=== PATIENT | female | born 1985 | race Asian ===

== ENCOUNTER 2017-05-01 00:30 | Inpatient (IN) | payer SELFPAY ==
[~2017-05-01] VITALS: Ht 160 cm; Wt 71.7 kg
[2017-05-01] MEDS ORDERED: MISOPROSTOL 25 MCG TAB VG PRN (01:30)
[2017-05-01] MEDS ORDERED: NALBUPHINE HYDROCHLORIDE 10 MG/ML VIAL IVP PRN (01:30)
[2017-05-01] MEDS ORDERED: OXYTOCIN 10 UNITS/ML VIAL IM SCH (01:30)
[2017-05-01] MEDS ORDERED: METHYLERGONOVINE 0.2 MG/ML AMP IM PRN (01:30)
[2017-05-01] MEDS ORDERED: PROMETHAZINE 25 MG/ML VIAL IVP PRN (01:30)
[2017-05-01] MEDS ORDERED: CARBOPROST 250 MCG/ML AMP IM PRN (01:30)
[2017-05-01] MEDS: LACTATED RINGERS 1,000 ML IV SCH ×5 (01:59→19:59)
[2017-05-01 02:17] LABS: BASOPHILS # (AUTO) 0.1 K/uL (0.00-0.22); BASOPHILS % (AUTO) 0.8 % (0.0-2.0); EOSINOPHILS # (AUTO) 0.1 K/uL (0-0.4); EOSINOPHILS % (AUTO) 0.8 % (0.0-4.0); HEMATOCRIT 35.3 % (36-48); HEMOGLOBIN 11.8 g/dL (12.0-16.0); LYMPHOCYTES # (AUTO) 1.3 K/uL (2.5-16.5); LYMPHOCYTES % (AUTO) 12.1 % (20.5-51.1); MEAN CORPUSCULAR HEMOGLOBIN 29 pg (27-31); MEAN CORPUSCULAR HGB CONC 33 g/dL (33-37); MEAN CORPUSCULAR VOLUME 86 fL (80-94); MONOCYTES # (AUTO) 0.7 K/uL (0.8-1.0); NEUTROPHILS # (AUTO) 8.2 K/uL (1.8-7.7); NEUTROPHILS % (AUTO) 79.3 % (42.2-75.2); PLATELET COUNT (AUTO) 131 K/uL (140-450); RED BLOOD CELL COUNT(AUTO) 4.09 MIL/uL (4.20-5.40); RED CELL DISTRIBUTION WIDTH 17.7 % (11.6-13.7); WHITE BLOOD COUNT (AUTO) 10.4 K/uL (4.8-10.8)
[2017-05-01] MEDS ORDERED: MISOPROSTOL 25 MCG TAB ONE ×3 (02:46→14:42)
[2017-05-01 02:56] LABS: ANION GAP 14.6 (8-16); CARBON DIOXIDE 22.8 mmol/L (21-32); CREATININE 0.6 mg/dL (0.6-1.3); POTASSIUM 4.4 mmol/L (3.5-5.1)
[2017-05-01 03:02] LABS: ALBUMIN 2.8 g/dL (3.4-5.0); TOTAL BILIRUBIN 0.2 mg/dL (0.0-1.0)
[2017-05-01] MEDS ORDERED: OSC500 PO (03:25)
[2017-05-01] MEDS ORDERED: FERR325E14 PO (03:25)
[2017-05-01] MEDS ORDERED: INFLUENZA VIRUS VACCINE QUAD 0.5 ML SYR IMVAC SCH (03:55)
[2017-05-01 03:56] VITALS: BP 115/84
[2017-05-01] MEDS ORDERED: OXYTOCIN 20 UNITS in LACTATED RINGERS 1,000 ML IV SCH (04:00)
[2017-05-01 07:27] LABS: APPEARANCE,URINE HAZY (CLEAR); BILIRUBIN,URINE NEGATIVE (NEGATIVE); BLOOD, URINE NEGATIVE (NEGATIVE); COLOR,URINE YELLOW (YELLOW); LEUKOCYTE ESTERASE ,URINE NEGATIVE (NEGATIVE); NITRITE, URINE NEGATIVE (NEGATIVE); PH,URINE 6.5 (5.0-9.0); UGLUCOSE NEGATIVE (NEGATIVE)
[2017-05-01] MEDS ORDERED: ROPIVACAINE 0.2%/NS PREMIX 250 ML EPI ONE (10:06)
[2017-05-01 19:54] LABS: RAPID PLASMA REAGIN NON-REACTIVE (Non Reactiv)
[2017-05-02] MEDS ORDERED: OXYTOCIN 10 UNITS/ML VIAL ONE (04:20)
[2017-05-02] MEDS ORDERED: AMMONIA AROMATIC 1 INHL INH ONE ×2 (09:27→09:34)
[2017-05-02] MEDS ORDERED: oxyCODONE/APAP 5/325 MG 1 TAB TAB ONE ×2 (10:09→14:56)
[2017-05-02] MEDS ORDERED: METHYLERGONOVINE 0.2 MG TAB PO PRN (14:40)
[2017-05-02] MEDS ORDERED: HYDROcodone/APAP 5/325 MG 1 TAB TAB PO PRN (14:40)
[2017-05-02] MEDS ORDERED: TEMAZEPAM 15 MG CAP PO PRN (14:40)
[2017-05-02] MEDS ORDERED: SODIUM PHOSPHATE 118 ML ENEM RC PRN (14:40)
[2017-05-02] MEDS ORDERED: MEASLES, MUMPS, AND RUBELLA 1 VIAL SQVAC PRN (14:40)
[2017-05-02] MEDS ORDERED: BENZOCAINE/MENTHOL 20%-0.5% 60 GM CAN TP PRN (14:40)
[2017-05-02] MEDS ORDERED: acetaZOLAMIDE 250 MG TAB PO SCH ×2 (15:00→21:00)
[2017-05-02] MEDS ORDERED: AMPICILLIN 2,000 MG VIAL ONE (16:43)
[2017-05-02] MEDS ORDERED: DOCUSATE SOD/SENNA 50/8.6 MG 1 TAB PO SCH (21:00)
[2017-05-02] MEDS: oxyCODONE/APAP 5/325 MG 1 TAB TAB PO PRN (21:16)
[2017-05-03] MEDS ORDERED: INFLUENZA VIRUS VACCINE QUAD 0.5 ML SYR IMVAC SCH (03:30)
[2017-05-03] MEDS: oxyCODONE/APAP 5/325 MG 1 TAB TAB PO PRN (05:22)
[2017-05-03 06:03] LABS: HEMATOCRIT 29.9 % (36-48); HEMOGLOBIN 9.8 g/dL (12.0-16.0)
== END 2017-05-03 22:40 | disposition home or self-care (01) | DRG 775 ==
LOC: MLD 00:30 → MFCC 05-02 11:30 → EDSTATUS 05-02 13:17
PROVIDERS: ADMIT Obstetrics & Gynecology; ATTEND Obstetrics & Gynecology
PROC: 10E0XZZ Delivery of Products of Conception, External Approach (ICD-10-PCS; principal; 2017-05-01)
PROC: 3E0R3BZ Introduction of Anesthetic Agent into Spinal Canal, Percutaneous Approach (ICD-10-PCS; 2017-05-01)
PROC: 00HU33Z Insertion of Infusion Device into Spinal Canal, Percutaneous Approach (ICD-10-PCS; 2017-05-01)
DX: O75.81 Maternal exhaustion complicating labor and delivery (principal); Z37.0 Single live birth; Z3A.40 40 weeks gestation of pregnancy
CPT/HCPCS: 36415; 51702; 59200; 80053; 81003; 85018; 85025; 86592; 86886; 86900; 86901; 90658; 90715; C1758; J0290; J2590; J2795; J7120